=== PATIENT | male | born 1965 | race Two or more races ===

== ENCOUNTER 2021-05-27 12:52 | Emergency (ER) | payer BC, OTHER ==
[~2021-05-27] VITALS: Ht 175.3 cm; Wt 85.0 kg
[2021-05-27 15:53] LABS: ALANINE AMINOTRANSFERASE 43 U/L (12-78); ALBUMIN 3.8 g/dL (3.4-5.0); ANION GAP 5 mmol/L (5-15); CALCIUM 8.4 mg/dL (8.5-10.1); CHLORIDE 106 mmol/L (98-107); CREATININE 0.84 mg/dL (0.7-1.3)
--- NOTE | 2021-05-27 15:55 | NUR ---
Patient to room from lobby
[2021-05-27 15:57] LABS: ALKALINE PHOSPHATASE 138 U/L (45-117); BILIRUBIN,TOTAL 0.9 mg/dL (0.2-1.0); TOTAL PROTEIN 8.1 g/dL (6.4-8.2); TROPONIN I < 0.015 ng/mL (0.000-0.045)
[2021-05-27 16:21] LABS: BASOPHILS % (AUTO) 1 % (0-1); EOSINOPHILS % (AUTO) 1 % (1-7); LYMPHOCYTES % (AUTO) 32 % (22-44); MEAN CORPUSCULAR HEMOGLOBIN 32.1 pg (27.5-34.5); MEAN CORPUSCULAR HGB CONC 34.8 g/dL (33.2-36.2); MEAN PLATELET VOLUME 8.2 fL (7.4-10.4); MONOCYTES % (AUTO) 7 % (2-9); NEUTROPHILS % (AUTO) 58 % (42-75); PLATELET COUNT 265 x10^3/uL (130-400); RED BLOOD COUNT 4.98 x10^6/uL (4.38-5.82); RED CELL DISTRIBUTION WIDTH 13.3 % (9.4-14.8)
[2021-05-27] MEDS ORDERED: KETOROLAC 30 MG/1 ML IM ONE (16:30)
[2021-05-27] MEDS ORDERED: KETOROLAC 30 MG/1 ML ONE (17:15)
--- NOTE | 2021-05-27 17:22 | NUR ---
BREAK RN: REPORT FROM MAYO PEÑA. CARE ASSUMED FOR BREAK. PT MEDICATED NOTED PER DR. FOWLER/ONUR FOR 12/14 CHEST WALL PAIN, "IT FEELS BETTER NOW, MUCH BETTER THAN 3 DAYS AGO." RESTING COMFORTABLY. VSS. DENIES NEED TO USE RESTROOM. CALL LIGHT IN REACH. FALL PRECAUTIONS IN PLACE.
--- NOTE | 2021-05-27 17:28 | NUR ---
BREAK RN: BEDSIDE REPORT AND TRANSFER OF CARE BACK TO PRIMARY RN MAYO AT THIS TIME.
[2021-05-27 17:45] VITALS: BP 130/97
--- NOTE | 2021-05-27 17:46 | NUR ---
TASK RN: Patient/Caregiver given discharge instructions and they have confirmed that they understand the instructions. Patient ambulatory with steady gait. NAD, all questions answered appropriately, denies additional needs at this time. No personal belongings left in room after discharge. Pt denies pain at this time.
== END 2021-05-27 17:57 | disposition home or self-care (01) ==
LOC: ED 17:50
DX: R07.89 Other chest pain (principal); Z87.891 Personal history of nicotine dependence
CPT/HCPCS: 36415; 71045; 80053; 84484; 85025; 93005; 96372; 99285; J1885